=== PATIENT | male | born 1940 | race Caucasian/White ===

== ENCOUNTER 2021-01-30 18:20 | Emergency (ER) | payer MEDICARE, SELFPAY ==
[2021-01-30] VITALS (11 sets, daily range): BP systolic 134–151; BP diastolic 61–73; PULSE 66–86; RESP 18–22; TEMP 37.7–38.8; O2SAT 94–96
--- NOTE | 2021-01-30 18:29 | DI.RAD.S_ITS ---
PROCEDURE: XR CHEST 1V INDICATIONS: suspected sepsis TECHNIQUE: One view of the chest was acquired. COMPARISON: None. FINDINGS: Surgical changes and devices: None. Lungs and pleura: Lungs are clear. No pleural effusions or pneumothorax. Mediastinum: Tortuous thoracic aorta is seen. Heart size is enlarged. Bones and chest wall: No suspicious bony lesions. Overlying soft tissues appear unremarkable. IMPRESSION: No acute cardiopulmonary pathology. Dictated by: Eb Salinas M.D. on 01/30/2021 at 19:23 Approved by: Eb Salinas M.D. on 01/30/2021 at 19:23
--- NOTE | 2021-01-30 18:36 | ED_ITS ---
HPI - Fever General Chief Complaint: Fever Stated Complaint: Shaky legs, worsening weakness, psyche changes Time Seen by Provider: 01/30/21 18:36 Source: patient and family Mode of arrival: Ambulatory Limitations: no limitations History of Present Illness HPI Narrative: This is a 80-year-old male with known history of Alzheimer's he is on Aricept, Lexapro, Flomax, turmeric and a baby aspirin daily. Patient has had some BPH and has had a prior prostate surgery for BPH that had incidental finding of a small amount of prostate cancer. They had been following with PSA. Patient flew here several days ago from [place] with his partner to visit the area and friends. Patient has some memory issues which by description are moderate. He has also had some mild speech issues. He has had some slowly worsening weakness but has been able to ambulate without assistance. Today patient has just felt generally more weak in his lower extremities. He has not had any falls or injuries. He denies headache or neck pain. No chest pain or shortness of breath. No cough, cold or congestion. No nausea or vomiting. He has some urinary frequency but this is not new or changed he denies dysuria urgency. He has had not had any diarrhea constipation or black or bloody stools. He has chronic low back pain which has not changed. He has not any rashes or skin changes. He is vaccine x2 for coronavirus. He has not had any other sick contacts that he is aware. Review of Systems Review of Systems ROS Unobtainable: All systems reviewed & are unremarkable except as noted in HPI and below Exam Narrative Exam Narrative: GEN: well nourished, well appearing male, alert and oriented, patient appears to be in mild distress. HEENT: Atraumatic, pupils are equal round reactive to light, extraocular movements are intact, nares are clear, TMs are clear with no fluid, there is no conjunctival pallor. Throat is clear without any exudates, erythema, tonsillar enlargement or uvular deviation HEART: Regular rate and rhythm without murmur, clicks, rubs. Pulses are equal in upper and lower extremities LUNGS:Lungs clear to auscultation, no wheezes, rales, crackles, chest moves symmetrically ABD:bowel sounds normal, soft, non-tender, no guarding, rebound, rigidity, no masses noted, no hepatosplenomegaly :No CVA tenderness MSCL: Non-tender, no muscle atrophy, muscles strength 5/5 upper and lower extremities, full range of motion NEURO:CN 2-12 intact, sensation normal SKIN: Patient has small abrasion with scab on the left anterior crooks a pproximately 2 cm of slight insert prescribed erythema with no swelling. Initial Vital Signs Initial Vital Signs: Vital Signs Pulse Rate 86 01/30/21 18:24 Pulse Oximetry 96 01/30/21 18:24 Course Orders Ordered: ED Orders 01/30/21 18:29 XR chest 1V Stat RT Consult Eval and Treat Now 01/30/21 18:45 COVID19 -Nasal swab/Pre-Proc Stat 01/30/21 18:48 Complete Blood Count AUTO DIFF Stat Comprehensive Metabolic Panel Stat Lactate (Lactic Acid) Stat Lipase Stat Procalcitonin Stat 01/30/21 18:54 EKG-12 Lead Stat 01/30/21 19:00 COVID19 - ADMIT ([employer] swab/PCR) Stat 01/30/21 19:08 Urine Microscopic Stat 01/30/21 19:09 Blood Culture Stat Discontinued Medications Acetaminophen (Acetaminophen 325 Mg Tablet) 975 mg PO NOW ONE Stop: 01/30/21 18:39 Last Admin: 01/30/21 19:05 Dose: 975 mg Documented by: DBROYLE Sodium Chloride (Normal Saline 0.9%) 1,000 mls @ 1,000 mls/hr IV BOLUS ONE Stop: 01/30/21 19:27 Last Infusion: 01/30/21 20:50 Dose: 0 mls/hr Documented by: Admin: 01/30/21 19:05 Dose: 1,000 mls/hr Documented by: DBROYLE Sodium Chloride (Normal Saline 0.9%) 1,000 mls @ 1,000 mls/hr IV BOLUS ONE Stop: 01/30/21 19:32 Last Admin: 01/30/21 18:40 Dose: Not Given Documented by: ROQUE Vital Signs Vital signs: Vital Signs - 8 hr 01/30/21 18:24 01/30/21 18:25 01/30/21 18:27 Temperature 101.9 F H Pulse Rate 86 82 84 Respiratory Rate 22 Blood Pressure 150/73 H 150/73 H Pulse Oximetry 96 96 96 01/30/21 18:30 01/30/21 19:00 01/30/21 19:05 Temperature 101 F H Pulse Rate 79 77 Respiratory Rate Blood Pressure 148/68 H Pulse Oximetry 95 95 01/30/21 19:30 01/30/21 19:31 01/30/21 20:00 Temperature Pulse Rate 69 73 66 Respiratory Rate Blood Pressure 151/67 H 134/61 Pulse Oximetry 94 95 95 01/30/21 20:50 01/30/21 20:54 Temperature 99.9 F H Pulse Rate 66 Respiratory Rate 18 Blood Pressure 134/61 Pulse Oximetry 96 MDM - Fever Lab Data Result diagrams: 01/30/21 18:48 01/30/21 18:48 Labs: Lab Results 01/30/21 01/30/21 01/30/21 Range/Units 18:45 18:48 18:48 WBC 6.4 (4.5-11.0) X10^3/uL RBC 4.40 L (4.5-5.9) X10^6/uL Hgb 13.5 (13.5-17.5) g/dL Hct 39.8 L (41-53) % MCV 90.3 (80-100) fL MCH 30.6 (26-34) PG MCHC 33.8 (30-36) % RDW 14.4 (11.6-14.8) % Plt Count 206 (150-400) X10^3/uL Neut % (Auto) 72.9 (50-75) % Lymph % (Auto) 15.4 L (25-40) % Stone % (Auto) 10.1 (3-14) % Eos % (Auto) 1.0 L (2-4) % Baso % (Auto) 0.6 (0-2) % Neut # (Auto) 4600 (4142-4866) /uL Lymph # (Auto) 1000 L (1825-0881) /uL Stone # (Auto) 600 (0-900) /uL Eos # (Auto) 100 (0-450) /uL Baso # (Auto) 0 (0-100) /uL Sodium 140 (137-145) mmol/L Potassium 4.1 (3.4-5.1) mmol/L Chloride 107 (98-107) mmol/L Carbon Dioxide 26 (22-32) mmol/L BUN 15 (9-20) mg/dL Creatinine 0.90 (0.66-1.25) mg/dL Estimated GFR > 60.0 (>60) mL/min BUN/Creatinine Ratio 16.7 (6-22) Glucose 92 (80-110) mg/dL Lactate (0.7-2.1) mmol/L Calcium 9.9 (8.4-10.2) mg/dL Total Bilirubin 0.6 (0.2-1.3) mg/dL AST 54 (17-59) IU/L ALT 20 (<50) IU/L Alkaline Phosphatase 73 (38-126) U/L Total Protein 7.3 (6.3-8.2) g/dL Albumin 4.2 (3.5-5.0) g/dL Globulin 3.1 (1.7-4.1) g/dL Albumin/Globulin Ratio 1.4 (1.0-2.8) Lipase 141 (23-300) U/L Procalcitonin 0.03 (<0.5) ng/mL Urine RBC (0-5/HPF) Urine WBC (0-5/HPF) Urine Bacteria (None) Urine Mucus (Negative) Ur Culture Indicated? SARS-CoV-2 (PCR) Positive H (Negative) 01/30/21 01/30/21 01/30/21 Range/Units 18:48 19:00 19:08 WBC (4.5-11.0) X10^3/uL RBC (4.5-5.9) X10^6/uL Hgb (13.5-17.5) g/dL Hct (41-53) % MCV (80-100) fL MCH (26-34) PG MCHC (30-36) % RDW (11.6-14.8) % Plt Count (150-400) X10^3/uL Neut % (Auto) (50-75) % Lymph % (Auto) (25-40) % Stone % (Auto) (3-14) % Eos % (Auto) (2-4) % Baso % (Auto) (0-2) % Neut # (Auto) (4814-1959) /uL Lymph # (Auto) (3987-2497) /uL Stone # (Auto) (0-900) /uL Eos # (Auto) (0-450) /uL Baso # (Auto) (0-100) /uL Sodium (137-145) mmol/L Potassium (3.4-5.1) mmol/L Chloride (98-107) mmol/L Carbon Dioxide (22-32) mmol/L BUN (9-20) mg/dL Creatinine (0.66-1.25) mg/dL Estimated GFR (>60) mL/min BUN/Creatinine Ratio (6-22) Glucose (80-110) mg/dL Lactate 0.8 (0.7-2.1) mmol/L Calcium (8.4-10.2) mg/dL Total Bilirubin (0.2-1.3) mg/dL AST (17-59) IU/L ALT (<50) IU/L Alkaline Phosphatase (38-126) U/L Total Protein (6.3-8.2) g/dL Albumin (3.5-5.0) g/dL Globulin (1.7-4.1) g/dL Albumin/Globulin Ratio (1.0-2.8) Lipase (23-300) U/L Procalcitonin (<0.5) ng/mL Urine RBC 1-5/hpf (0-5/HPF) Urine WBC 1-5/hpf (0-5/HPF) Urine Bacteria Occasional (0-1) (None) Urine Mucus 1+ H (Negative) Ur Culture Indicated? Cult not indicated SARS-CoV-2 (PCR) Positive H (Negative) Urine Dip Bedside Urine Glucose Negative Bedside Urine Bilirubin - Negative Bedside Urine Ketone +++ 80 Urine Specific [place] 1.030 Bedside Urine Occult Blood ++ Bedside Urine pH 6.0 Bedside Urine Protein +/- 15 Bedside Urine Urobilinogen - Negative Bedside Urine Nitrite - Negative Bedside Urine Leukocytes +/- 15 Esterase Imaging Data Chest x-ray: Radiologist's Impression: Launch?[address] [address] XRay Report Signed Patient: Tapan Garcia MR#: [id number] : 1940 Acct:[id number] Age/Sex: 80 / M Date of Service: 01/30/21 Loc: ED Accession Number: [id number] ?? Procedure: XR chest 1V Ordering Provider: Mary Joe D.O. PROCEDURE:? XR CHEST 1V ? INDICATIONS:? suspected sepsis ? TECHNIQUE:? One view of the chest was acquired.? ? COMPARISON:? None. ? FINDINGS:? ? Surgical changes and devices:? None.? ? Lungs and pleura:? Lungs are clear.? No pleural effusions or pneumothorax.? ? Mediastinum:? Tortuous thoracic aorta is seen.? Heart size is enlarged. ? Bones and chest wall:? No suspicious bony lesions.? Overlying soft tissues appear unremarkable.? ? IMPRESSION:? No acute cardiopulmonary pathology. ? ? Dictated by: Eb Salinas M.D. on 01/30/2021 at 19:23 ? ? Approved by: Eb Salinas M.D. on 01/30/2021 at 19:23?? ECG Data Attestation: I personally reviewed and interpreted this ECG as follows: Prior ECG tracings: not available for review Interpretation: Sinus rhythm rate of 75 OH 186 QRS 80 QTC of 422. No acute ST changes appreciated. MDM Narrative Medical decision making narrative: This is a 80-year-old male who was COVID positive. Patient has Alzheimer's, a small area of prostate cancer on prior TURP who is being followed by PSA only at this time and has had vaccination x2 for coronavirus. recently traveled to the area and developed symptoms in last 24-48 hours. Patient's chest x-ray, vital signs and labs are reassuring. He has not been hypoxic, tachycardic and he has been able to ambulate safely. Patient would potentially be a candidate for monoclonal antibodies and [facility] were filled [facility]. Return precautions were discussed with him and his partner. All questions were answered. Discharge Plan Departure Patient Disposition: Home Clinical Impression: COVID-19 virus infection Instructions: DI for COVID-19 (Suspected or Confirmed ) Activity Restrictions/Additional Instructions: *You have been diagnosed with COVID infection. Your chest x-ray today does not show any changes. If you wish you may obtain a pulse oximeter for use at home to monitor. Please return to the ER if your pulse oximeter shows an O2 saturation less than 94%. You can follow-up with [facility] regarding monoclonal antibody therapy. A form has been faxed and you should expect a phone call 24-48 hours to exclude joule an appointment. There has been a shortage recently so does not guarantee D will get the infusion. This medication is emergency authorized. *What to do: * per recommendations from the CDC and the [facility] Department of Health * stay home except to get medical care. Restrict activities outside your home, except for getting medical care. Do not go to work, school, or public areas. Avoid using public transportation, ride sharing, or taxis. * separate yourself from other people in your home. * call ahead before visiting your doctor * Wear a face mask * Cover your coughs and sneezes * Clean your hands often * Avoid sharing household items * Clean all high-touch services every day * Monitor your symptoms and seek prompt medical attention if your illness is worsening, particularly with difficulty in breathing. Discussed continuing home isolation * for individuals with symptoms who are confirmed or suspected cases of COVID-19 and are directed to care for themselves at home, discontinue home isolation under the following conditions: 1. At least 72 hours have passed since recovery, defined as resolution of fever without the use of fever reducing medications, and improvement in respiratory symptoms (cough, shortness of breath) AND, 2. At least 7 days have passed since symptoms 1st appeared Individuals with laboratory confirmed COVID-19 who have not had any symptoms may discontinue home isolation when at least 7 days have passed since the date of their 1st COVID-19 diagnostic test and have had no subsequent illness Referrals: Miscelllamar,MD Farheen [Primary Care Provider] -
[2021-01-30 18:55] LABS: Add Manual Diff / Slide Review NO; Basophils Absolute Auto 0 /uL (0-100); Basophils Percent Auto 0.6 % (0-2); Eosinophils Absolute Auto 100 /uL (0-450); Hematocrit 39.8 % (41-53); Hemoglobin 13.5 g/dL (13.5-17.5); Lymphocytes Absolute Auto 1000 /uL (1100-4500); Lymphocytes Percent Auto 15.4 % (25-40); Mean Corpuscular HGB Conc 33.8 % (30-36); Mean Corpuscular Hemoglobin 30.6 PG (26-34); Mean Corpuscular Volume 90.3 fL (80-100); Monocytes Absolute Auto 600 /uL (0-900); Monocytes Percent Auto 10.1 % (3-14); Neutrophils Absolute Auto 4600 /uL (1500-7000); Neutrophils Percent Auto 72.9 % (50-75); Platelet Count 206 X10^3/uL (150-400); Red Cell Distribution Width 14.4 % (11.6-14.8); White Blood Cell Count 6.4 X10^3/uL (4.5-11.0)
[2021-01-30] MEDS: ACETAMINOPHEN 325 MG TABLET 975 MG PO (19:05)
[2021-01-30] MEDS: SODIUM CHLORIDE 0.9% 1,000 ML 1000 ML IV (19:05)
[2021-01-30 19:06] LABS: Alanine Aminotransferase 20 IU/L (<50); Albumin 4.2 g/dL (3.5-5.0); Albumin Globulin Ratio 1.4 (1.0-2.8); Alkaline Phosphatase 73 U/L (38-126); Aspartate Aminotransferase 54 IU/L (17-59); BUN Creatinine Ratio 16.7 (6-22); Bilirubin Total 0.6 mg/dL (0.2-1.3); Blood Urea Nitrogen 15 mg/dL (9-20); Calcium 9.9 mg/dL (8.4-10.2); Carbon Dioxide 26 mmol/L (22-32); Chloride 107 mmol/L (98-107); Estimated Glomerular Filt Rate > 60.0 mL/min (>60); Globulin 3.1 g/dL (1.7-4.1); Glucose 92 mg/dL (80-110); HEMOLYSIS < 15 (0-50); Lipase 141 U/L (23-300); Potassium 4.1 mmol/L (3.4-5.1); Sodium 140 mmol/L (137-145); Total Protein 7.3 g/dL (6.3-8.2)
[2021-01-30 19:07] LABS: Lactate (Lactic Acid) 0.8 mmol/L (0.7-2.1)
[2021-01-30 19:12] LABS: COVID19 -Nasal RAPID POSITIVE (Negative)
[2021-01-30 19:18] LABS: Bacteria Urine Occasional (0-1); Culture Indicated Urine Cult Not Indicated; Mucus Urine 1+ (Negative); RBC Urine 1-5/HPF (0-5/HPF); WBC Urine 1-5/HPF (0-5/HPF)
[2021-01-30 19:23] LABS: Procalcitonin 0.03 ng/mL (<0.5)
[2021-01-30 20:05] LABS: COVID19 - ADMIT (NP swab/PCR) POSITIVE (Negative)
== END 2021-01-30 20:55 | disposition home or self-care (01) ==
PROVIDERS: Emergency Provider Emergency Medicine
DX: U07.1 COVID-19 (principal); R53.1 Weakness; C61 Malignant neoplasm of prostate; G30.9 Alzheimer's disease, unspecified; F02.80 Dementia in other diseases classified elsewhere, unspecified severity, without behavioral disturbance, psychotic disturbance, mood disturbance, and anxiety
CPT/HCPCS: 36415; 71045; 80053; 81003; 81015; 83605; 83690; 84145; 85025; 87040; 87635; 93005; 96360; 96361; 99284; C9803